=== PATIENT | female | born 1940 | race Caucasian/White ===

== ENCOUNTER 2021-05-23 17:59 | Observation (INO) | payer OTHER ==
[2021-05-23 18:23] VITALS: BMI 25.7
[2021-05-23 23:21] LABS: BASO % 0.5 % (0-2.0); EOS % 3.4 % (0-4.5); HEMATOCRIT 42.1 % (32.4-45.2); HEMOGLOBIN 13.9 GM/dL (10.7-15.3); LYMPH % 36.9 % (8-40); MCH 28.7 pg (25.7-33.7); MEAN CELL VOLUME 86.9 fl (80-96); MEAN PLT VOLUME 7.6 fl (7.5-11.1); MONO % 7.7 % (3.8-10.2); NEUT % 51.5 % (42.8-82.8); PLATELET COUNT 264 10^3/uL (134-434); RBC 4.84 M/mm3 (3.60-5.2); WHITE BLOOD COUNT 7.7 K/mm3 (4.0-10.0)
[2021-05-23 23:49] LABS: CHLORIDE 109 mmol/L (98-107); SODIUM 141 mmol/L (136-145)
[2021-05-23 23:51] LABS: CALCIUM 9.3 mg/dL (8.5-10.1)
[2021-05-23 23:52] LABS: ALBUMIN 3.3 g/dl (3.4-5.0); ANION GAP 4 MMOL/L (8-16); BLOOD UREA NITROGEN 24.7 mg/dL (7-18); CO2 28 mmol/L (21-32); GLUCOSE,RANDOM 100 mg/dL (74-106); MAGNESIUM 2.4 mg/dL (1.8-2.4)
[2021-05-23 23:55] LABS: CREATININE 1.2 mg/dL (0.55-1.3); PHOSPHOROUS 3.5 mg/dL (2.5-4.9); SGOT/AST 55 U/L (15-37); SGPT/ALT 34 U/L (13-61)
[2021-05-23 23:57] LABS: BILIRUBIN,TOTAL 0.3 mg/dL (0.2-1); TOT PROT 7.5 g/dl (6.4-8.2)
[2021-05-23 23:58] LABS: ALK PHOS 72 U/L (45-117)
[2021-05-24 02:11] LABS: EPI CELLS 14 /uL (0-25.1); HYALINE CASTS 1 /uL (0-3.1); PH,URINE 5.5 (5.0-8.0); URINE APPEARANCE CLEAR; URINE BACTERIA 16 /uL (0-1359); URINE BILIRUBIN NEGATIVE (NEGATIVE); URINE COLOR YELLOW; URINE GLUCOSE (UA) NEGATIVE (NEGATIVE); URINE KETONE NEGATIVE (NEGATIVE); URINE LEUK ESTERASE 2+ (NEGATIVE); URINE NITRITE NEGATIVE (NEGATIVE); URINE PROTEIN NEGATIVE (NEGATIVE); URINE RBC 54 /uL (0-23.9); URINE UROBILINOGEN 0.2 mg/dL (0.2-1.0); URINE WBC 138 /uL (0-25.8)
[2021-05-24 03:18] LABS: BLOOD UREA NITROGEN 27.4 mg/dL (7-18); CALCIUM 9.2 mg/dL (8.5-10.1)
[2021-05-24 03:22] LABS: CREATININE 1.2 mg/dL (0.55-1.3)
[2021-05-24] MEDS ORDERED: SODIUM CHLORIDE 1,000 ML IV SCH (03:30)
[2021-05-24] MEDS ORDERED: CEFTRIAXONE 1 GM in DEXTROSE 5%-WATER - 50 ML IVPB ONE (03:35)
[2021-05-24] MEDS ORDERED: CEFTRIAXONE 1 GM/50 ML BAG ONE (03:57)
[2021-05-24] MEDS ORDERED: LEVOTHYROXINE NA 25 MCG TABLET (FP) ONE (06:05)
[2021-05-24] MEDS: LEVOTHYROXINE NA 50 MCG TABLET (FP) PO SCH (06:14)
[2021-05-24] MEDS: INSULIN SLIDING SCALE (NOVOLOG) 1 VIAL SQ SCH ×4 (06:37→22:50)
[2021-05-24 07:15] LABS: BASO % 0.5 % (0-2.0); EOS % 4.4 % (0-4.5); HEMATOCRIT 41.4 % (32.4-45.2); HEMOGLOBIN 13.8 GM/dL (10.7-15.3); LYMPH % 37.8 % (8-40); MCH 29.1 pg (25.7-33.7); MCHC 33.2 g/dl (32.0-36.0); MEAN CELL VOLUME 87.7 fl (80-96); MEAN PLT VOLUME 7.7 fl (7.5-11.1); MONO % 8.6 % (3.8-10.2); NEUT % 48.7 % (42.8-82.8); PLATELET COUNT 234 10^3/uL (134-434); RBC 4.73 M/mm3 (3.60-5.2); RDW 14.2 % (11.6-15.6); WHITE BLOOD COUNT 6.6 K/mm3 (4.0-10.0)
[2021-05-24 07:47] LABS: ALBUMIN 2.9 g/dl (3.4-5.0); BLOOD UREA NITROGEN 26.8 mg/dL (7-18); CALCIUM 8.7 mg/dL (8.5-10.1)
[2021-05-24 07:48] LABS: MAGNESIUM 1.9 mg/dL (1.8-2.4)
[2021-05-24 07:50] LABS: CREATININE 1.1 mg/dL (0.55-1.3); PHOSPHOROUS 3.2 mg/dL (2.5-4.9)
[2021-05-24 07:51] LABS: BILIRUBIN,TOTAL 0.4 mg/dL (0.2-1); TOT PROT 6.8 g/dl (6.4-8.2)
[2021-05-24 08:01] LABS: CHOLESTEROL 178 mg/dL (50-200); TRIGLYCERIDES 144 mg/dL (0-150)
[2021-05-24 08:02] LABS: LDL CHOLESTEROL (ONLY SJRH) 75 mg/dL (5-100)
[2021-05-24 08:04] LABS: HDL CHOLESTEROL 65 mg/dL (40-60)
[2021-05-24] MEDS ORDERED: LOSARTAN POTASSIUM 25 MG TABLET PO SCH (10:00)
[2021-05-24] MEDS ORDERED: amLODIPine BESYLATE 5 MG TABLET (FP) PO SCH (10:00)
[2021-05-24] MEDS ORDERED: PT OWN MED DRAWER 7, Y5N ONE ×2 (10:18→16:14)
[2021-05-24] MEDS ORDERED: amLODIPine BESYLATE 5 MG TABLET (FP) ONE (10:18)
[2021-05-24] MEDS ORDERED: ENOXAPARIN NA (PORCINE) 40 MG/0.4 ML DISP.SYRIN SQ ONE (10:18)
[2021-05-24] MEDS: ENOXAPARIN NA (PORCINE) 40 MG/0.4 ML DISP.SYRIN SQ SCH (10:28)
[2021-05-24] MEDS: SERTRALINE HCL 25 MG TABLET (FP) PO SCH (10:28)
[2021-05-24] MEDS ORDERED: LOSARTAN POTASSIUM 25 MG TABLET PO ONE (15:20)
[2021-05-24] MEDS ORDERED: LOSARTAN POTASSIUM 50 MG TABLET ONE (16:14)
[2021-05-24] MEDS ORDERED: ATORVASTATIN CA 10 MG TABLET (FP) PO SCH (22:00)
[2021-05-24] MEDS ORDERED: MONTELUKAST NA 10 MG TABLET PO SCH (22:00)
[2021-05-24] MEDS ORDERED: ATORVASTATIN CA 10 MG TABLET (FP) ONE (22:44)
[2021-05-24] MEDS ORDERED: MONTELUKAST NA 10 MG TABLET ONE (22:45)
[2021-05-25] MEDS: LEVOTHYROXINE NA 50 MCG TABLET (FP) PO SCH (08:00)
[2021-05-25 08:14] VITALS: BP 133/86; PULSE 88; TEMP 98.3
[2021-05-25] MEDS: INSULIN SLIDING SCALE (NOVOLOG) 1 VIAL SQ SCH (10:09)
[2021-05-25] MEDS ORDERED: SERTRALINE HCL 50 MG TABLET (FP) ONE (10:26)
[2021-05-25] MEDS ORDERED: LEVOTHYROXINE NA 25 MCG TABLET (FP) ONE (10:26)
[2021-05-25] MEDS ORDERED: ENOXAPARIN NA (PORCINE) 40 MG/0.4 ML DISP.SYRIN SQ ONE (10:27)
[2021-05-25] MEDS: SERTRALINE HCL 25 MG TABLET (FP) PO SCH (10:28)
[2021-05-25] MEDS: ENOXAPARIN NA (PORCINE) 40 MG/0.4 ML DISP.SYRIN SQ SCH (10:28)
[2021-05-26] MEDS ORDERED: ASPIRIN COATED 81 MG TABLET.EC PO SCH (10:00)
== END 2021-05-25 16:30 | disposition home or self-care (01) ==
LOC: JER 17:59 → INTOOBSV 05-24 01:24 → JERBED 05-24 01:24 → UNDOADMOB 05-24 01:24 → JERBED 05-24 09:38
PROVIDERS: ADMIT Internal Medicine; ATTEND Internal Medicine
PROC: 3E0337Z Introduction of Electrolytic and Water Balance Substance into Peripheral Vein, Percutaneous Approach (ICD-10-PCS; principal; 2021-05-24)
PROC: 3E023GC Introduction of Other Therapeutic Substance into Muscle, Percutaneous Approach (ICD-10-PCS; 2021-05-24)
PROC: 3E03329 Introduction of Other Anti-infective into Peripheral Vein, Percutaneous Approach (ICD-10-PCS; 2021-05-24)
DX: I10 Essential (primary) hypertension (principal); E11.9 Type 2 diabetes mellitus without complications; M62.81 Muscle weakness (generalized); R79.89 Other specified abnormal findings of blood chemistry; E03.9 Hypothyroidism, unspecified; Z86.16 Personal history of COVID-19; F32.9 Major depressive disorder, single episode, unspecified; Z85.3 Personal history of malignant neoplasm of breast; Z90.49 Acquired absence of other specified parts of digestive tract; Z86.711 Personal history of pulmonary embolism; Z29.9 Encounter for prophylactic measures, unspecified; J45.909 Unspecified asthma, uncomplicated; R94.31 Abnormal electrocardiogram [ECG] [EKG]
CPT/HCPCS: 36415; 70450-TC; 70551-TC; 71045-TC-FY; 72141-TC; 80048; 80053; 80061; 81003; 82550; 82553; 82962; 83036; 83735; 84100; 84439; 84443; 84484; 85025; 87086; 93005; 93010; 93306-TC; 93880-TC; 96361; 96365; 96372; 99285-25; C9803; G0378; U0003; U0005